=== PATIENT | female | born 1965 | race Two or more races ===

== ENCOUNTER 2017-12-11 14:29 | Outpatient (CLI) | payer OTHER | END 2017-12-11 16:14 | disposition home or self-care (01) | LOC: MAMO-SONO 14:29 | DX: Z12.31 Encounter for screening mammogram for malignant neoplasm of breast (principal); N64.51 Induration of breast; R10.32 Left lower quadrant pain ==

== ENCOUNTER 2018-01-22 07:32 | Outpatient (CLI) | payer OTHER | END 2018-01-22 07:57 | disposition home or self-care (01) | LOC: SONOGRAMA 07:32 | DX: N63.20 Unspecified lump in the left breast, unspecified quadrant (principal) ==

== ENCOUNTER → 2018-09-25 | Outpatient (CLI) | payer OTHER | END | disposition home or self-care (01) | LOC: MAMO-SONO 10:45 → SONOGRAMA 10:53 | DX: E03.8 Other specified hypothyroidism (principal); E04.2 Nontoxic multinodular goiter ==

== ENCOUNTER 2018-11-18 07:51 | Outpatient (CLI) | payer OTHER | END 2018-11-18 07:53 | disposition home or self-care (01) | LOC: SONOGRAMA 07:51 | DX: E04.2 Nontoxic multinodular goiter (principal) ==

== ENCOUNTER 2018-12-17 14:36 | Outpatient (CLI) | payer OTHER | END 2018-12-17 14:39 | disposition home or self-care (01) | LOC: MAMO-SONO 14:36 | DX: N63.10 Unspecified lump in the right breast, unspecified quadrant (principal); N63.20 Unspecified lump in the left breast, unspecified quadrant; N64.51 Induration of breast; Z12.31 Encounter for screening mammogram for malignant neoplasm of breast ==

== ENCOUNTER 2019-07-10 13:54 | Outpatient (CLI) | payer OTHER | END 2019-07-10 14:01 | disposition home or self-care (01) | LOC: SONOGRAMA 13:54 → MAMO-SONO 14:15 | DX: E04.2 Nontoxic multinodular goiter (principal) ==

== ENCOUNTER 2019-08-28 13:20 | Outpatient (CLI) | payer OTHER | END 2019-08-28 13:28 | disposition home or self-care (01) | LOC: RAD 13:20 | DX: M54.2 Cervicalgia (principal); M54.5 Low back pain; M54.6 Pain in thoracic spine ==

== ENCOUNTER 2019-12-31 14:27 | Outpatient (CLI) | payer OTHER | END 2019-12-31 14:41 | disposition home or self-care (01) | LOC: MAMO-SONO 14:27 | DX: Z12.31 Encounter for screening mammogram for malignant neoplasm of breast (principal) ==

== ENCOUNTER 2023-12-28 07:28 | Outpatient (CLI) | payer OTHER | END 2023-12-28 07:44 | disposition home or self-care (01) | LOC: RAD 07:28 | DX: J45.20 Mild intermittent asthma, uncomplicated (principal) ==